=== PATIENT | female | born 2000 | race Caucasian/White ===

== ENCOUNTER 2022-11-19 | Emergency (ER) | payer OTHER ==
[~2022-11-19] VITALS: Ht 154.9 cm; Wt 62.0 kg
[2022-11-19] MEDS ORDERED: SODIUM CHLORIDE 0.9% 1,000 ML IV ONE (01:00)
[2022-11-19] MEDS ORDERED: CIPROFLOXACIN HCL 250 MG TABLET PO ONE (01:00)
[2022-11-19] MEDS ORDERED: DIPHENOXYLATE/ATROP 2.5-0.025 MG TABLET PO ONE (01:00)
[2022-11-19 01:28] LABS: BASOPHILS % (AUTO) 0.4 % (0.0-2.0); EOSINOPHILS % (AUTO) 0.3 % (1.0-6.0); HEMATOCRIT 41.7 % (36-46); HEMOGLOBIN 13.8 g/dL (12.0-16.0); LYMPHOCYTES # (AUTO) 1.1 K/uL (1.0-4.8); LYMPHOCYTES % (AUTO) 17.4 % (22.0-44.0); MEAN CORPUSCULAR HEMOGLOBIN 31.2 pg (26.0-34.0); MEAN CORPUSCULAR HGB CONC 33.1 G/dL (31.0-37.0); MEAN CORPUSCULAR VOLUME 94 fL (80-100); MONOCYTES # (AUTO) 0.6 K/uL (0.1-1.0); MONOCYTES % (AUTO) 9.4 % (2.0-9.0); NEUTROPHILS # (AUTO) 4.8 K/uL (1.8-7.7); NEUTROPHILS % (AUTO) 72.5 % (40.0-70.0); PLATELET COUNT (AUTO) 207 K/uL (150-450); RED BLOOD CELL COUNT(AUTO) 4.42 MIL/uL (4.00-5.20); RED CELL DISTRIBUTION WIDTH 12.6 % (11.5-14.5); WHITE BLOOD COUNT (AUTO) 6.6 K/uL (4.5-11.0)
[2022-11-19 01:34] LABS: ANION GAP 13 mmol/L (8-16); CALCIUM, TOTAL 9.4 mg/dL (8.8-10.5); CARBON DIOXIDE 20 mmol/L (22-29); CHLORIDE 99 mmol/L (98-107); CREATININE 0.66 mg/dL (0.60-1.30); GLOMERULAR FILTR. RATE CALC > 60 mL/min (>60); GLUCOSE,RANDOM 79 mg/dL (70-110); POTASSIUM 3.5 mmol/L (3.5-5.1); SODIUM SERUM 132 mmol/L (136-145); UREA NITROGEN, BLOOD 16 mg/dL (7-18)
[2022-11-19 01:40] LABS: ALANINE AMINOTRANSFERASE 13 U/L (12-78); ALBUMIN 4.1 g/dL (3.4-5.0); ALKALINE PHOSPHATASE 80 U/L (46-116); ASPARTATE AMINOTRANSFERASE 17 U/L (15-37); BILIRUBIN,TOTAL 0.4 mg/dL (0.1-1.0); TOTAL PROTEIN, SERUM 8.2 g/dL (6.4-8.2)
[2022-11-19 02:39] VITALS: BP 119/74; PULSE 80; RESP 18; TEMP 98.4
== END 2022-11-19 02:40 | disposition home or self-care (01) ==
LOC: EMS 00:04
DX: R19.7 Diarrhea, unspecified (principal); R11.2 Nausea with vomiting, unspecified
CPT/HCPCS: 99283; 96360; 80053; 84703; 85025; 36415; J7030

== ENCOUNTER 2023-11-12 16:59 | Emergency (ER) | payer OTHER ==
[~2023-11-12] VITALS: Ht 153 cm; Wt 55.9 kg
[2023-11-12] MEDS ORDERED: IBUP-2853 PO (17:06)
[2023-11-12 17:08] VITALS: BP 145/96; PULSE 105; RESP 18; TEMP 98.7; O2SAT 99
[2023-11-12] MEDS ORDERED: METH-659 PO (23:04)
[2023-11-12] MEDS ORDERED: ACET-2080 PO (23:04)
[2023-11-12] MEDS ORDERED: IBUP-1554 PO (23:04)
[2023-11-12] MEDS: IBUPROFEN 600 MG TABLET PO ONE (23:24)
[2023-11-12] MEDS: METHOCARBAMOL 500 MG TABLET PO ONE (23:24)
== END 2023-11-13 | disposition home or self-care (01) ==
LOC: EMS 16:59
DX: S16.1XXA Strain of muscle, fascia and tendon at neck level, initial encounter (principal); V49.88XA Car occupant (driver) (passenger) injured in other specified transport accidents, initial encounter; Y93.89 Activity, other specified; Y92.89 Other specified places as the place of occurrence of the external cause; Y99.8 Other external cause status
CPT/HCPCS: 72125; 99284; Z7502; Z7610